=== PATIENT | male | born 1950 | race Caucasian/White ===

== ENCOUNTER 2022-08-28 07:45 | Emergency (ER) | payer OTHER ==
[~2022-08-28] VITALS: Ht 170.2 cm; Wt 73.9 kg
[2022-08-28] MEDS ORDERED: CHLORTHALIDONE25 MG PO (08:04)
[2022-08-28] MEDS ORDERED: ENALAPRIL MALEA10 MG PO (08:04)
[2022-08-28] MEDS ORDERED: METOPROLOL SUCC25 MG PO (08:05)
[2022-08-28] MEDS ORDERED: GLIPIZIDE10 MG PO (08:05)
[2022-08-28] MEDS ORDERED: ONGLYZA2.5 MG PO (08:06)
[2022-08-28] MEDS ORDERED: ASPIRIN81 MG PO (08:06)
[2022-08-28] MEDS ORDERED: COLCHICINE0.6 M1 PO (08:28)
[2022-08-28] MEDS ORDERED: HYDROCODON-ACE1 EA11 PO (08:28)
== END 2022-08-28 09:15 | disposition home or self-care (01) ==
LOC: ED 07:45
DX: M10.9 Gout, unspecified (principal); E11.9 Type 2 diabetes mellitus without complications; Z79.899 Other long term (current) drug therapy; Z79.82 Long term (current) use of aspirin
CPT/HCPCS: 36415; 80048; 83735; 84550; 85025; 99283; A9270

== ENCOUNTER 2022-09-15 06:17 | Emergency (ER) | payer OTHER ==
[~2022-09-15] VITALS: Ht 170.2 cm; Wt 73.9 kg
[~2022-09-15 06:17] MED LIST: ASPIRIN81 MG PO; CHLORTHALIDONE25 MG PO; COLCHICINE0.6 M1 PO; ENALAPRIL MALEA10 MG PO; GLIPIZIDE10 MG PO; HYDROCODON-ACE1 EA11 PO; METOPROLOL SUCC25 MG PO; ONGLYZA2.5 MG PO
--- OUTSIDE RECORDS SUMMARY | 2022-09-15 06:21 | XMS ---
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 Rosita has no Care Guidelines for this patient. Alivia VISIT COUNT (12 MO.) 2 [facility] [facility] TOTAL 2 NOTE: Visits indicate total known visits. ED/[facility] VISIT TRACKING (12 MO.) [facility] [place] [facility] COMPLAINT: - DIFFICULTY SWALLOWING 08/28/2022 07:47 [facility] [place] TYPE: Emergency COMPLAINT: - L BIG TOE SWOLLEN/PAIN DIAGNOSES: - Type 2 diabetes mellitus without complications - Pain in left foot - Other long term care phlebotomist (current) drug therapy - Gout, unspecified - shelter (current) use of aspirin INPATIENT VISIT TRACKING (12 MO.) No inpatient visits to display in this time frame [email or web address]
== END 2022-09-15 07:00 | disposition home or self-care (01) ==
LOC: ED 06:17
DX: R09.89 Other specified symptoms and signs involving the circulatory and respiratory systems (principal); E11.9 Type 2 diabetes mellitus without complications; Z79.82 Long term (current) use of aspirin; Z79.899 Other long term (current) drug therapy
CPT/HCPCS: 80053; 85025; 99283